=== PATIENT | female | born 1985 | race Caucasian/White ===

== ENCOUNTER 2017-04-15 10:05 | Day surgery (SDC) | payer BC, OTHER ==
[~2017-04-15] VITALS: Ht 162.6 cm; Wt 86.0 kg
[2017-04-15] MEDS ORDERED: LACTATED RINGERS 1,000 ML IV SCH (10:51)
[2017-04-15 11:01] VITALS: BP 122/81
[2017-04-15] MEDS ORDERED: VALERIAN ROOT PO (11:05)
[2017-04-15 11:32] LABS: HCG UR OBC PASS
[2017-04-15] MEDS ORDERED: SILVER NITRATE STICK TP ONE (11:48)
[2017-04-15] MEDS ORDERED: FENTANYL PF 100 MCG/2ML ONE (12:06)
[2017-04-15] MEDS ORDERED: MIDAZOLAM 1 MG/ML, 2ML ONE (12:06)
[2017-04-15] MEDS ORDERED: ONDANSETRON 2MG/ML, 2ML ONE (12:24)
[2017-04-15] MEDS ORDERED: DEXAMETHASONE 4 MG/ML, 1ML ONE (12:24)
[2017-04-15] MEDS ORDERED: KETOROLAC 30 MG/1 ML ONE (12:24)
[2017-04-15] MEDS ORDERED: PROPOFOL 10 MG/ML, 20ML ONE (12:24)
[2017-04-15] MEDS ORDERED: SUCCINYLCHOLINE 20 MG/ML, 10ML ONE (12:24)
[2017-04-15] MEDS ORDERED: ACETAMINOPHEN 325 MG TABLET PO PRN (12:30)
[2017-04-15] MEDS ORDERED: MIDAZOLAM 1 MG/ML, 2ML IV PRN (12:30)
[2017-04-15] MEDS ORDERED: HYDROmorphone 1 MG/ML, 1ML IV PRN (12:30)
[2017-04-15] MEDS ORDERED: OXYcodone 5 MG/5 ML ORAL.SOL UDC PO PRN (12:30)
[2017-04-15] MEDS ORDERED: LABETALOL 5MG/ML, 20ML IV PRN (12:30)
[2017-04-15] MEDS ORDERED: MEPERIDINE/PF 25MG/0.5ML IVPush PRN (12:30)
[2017-04-15] MEDS ORDERED: hydrALAzine 20 MG/ML, 1ML IV PRN (12:30)
[2017-04-15] MEDS ORDERED: PROMETHAZINE 25 MG/ML, 1ML IV PRN (12:30)
[2017-04-15] MEDS ORDERED: FENTANYL PF 100 MCG/2ML IV PRN (12:30)
[2017-04-15] MEDS ORDERED: ONDANSETRON 2MG/ML, 2ML IVPush PRN (12:30)
[2017-04-15] MEDS ORDERED: ALBUTEROL SULFATE 2.5 MG/3 ML NPPB PRN (12:30)
[2017-04-15] MEDS ORDERED: OXYcodone 5 MG/5 ML ORAL.SOL UDC ONE (13:19)
[2017-04-15] MEDS ORDERED: ACETAMINOPHEN 650 MG/20.3 ML UDC ONE (13:19)
== END 2017-04-15 14:55 ==
LOC: OUT 10:05
PROVIDERS: ATTEND Obstetrics & Gynecology
DX: N92.1 Excessive and frequent menstruation with irregular cycle (principal); N84.0 Polyp of corpus uteri; N94.6 Dysmenorrhea, unspecified; N88.2 Stricture and stenosis of cervix uteri; F32.9 Major depressive disorder, single episode, unspecified; J45.909 Unspecified asthma, uncomplicated; Z72.89 Other problems related to lifestyle
CPT/HCPCS: 36415; 58558; 81025; 85025; 88305; J0330; J1100; J1885; J2250; J2405; J2704; J3010